=== PATIENT | female | born 1970 | race Caucasian/White ===

== ENCOUNTER 2017-03-28 23:23 | Emergency (ER) | payer OTHER ==
[2017-03-28 23:28] VITALS: BMI 22.2
[2017-03-29] MEDS ORDERED: TETANUS AND DIPHTHERIA TOXOID 0.5 ML DISP.SYRIN IM ONE (00:22)
--- NOTE | 2017-03-29 00:29 | PDOC ---
History of Present Illness - General Chief Complaint: Injury Stated Complaint: LACERATION Time Seen by Provider: 03/29/17 00:15 History Source: Patient, Accountant Used Exam Limitations: Language Barrier - History of Present Illness Initial Comments: 03/29/17 00:24 46yo female patient with no significant past medical history presents to ED c/o left ring finger injury sustained when finger was caught and slammed in a car door. Patient denies any other complaints at this time. Incident occurred around 9pm. No OTC medications use. LNMP: Mar 18. Timing/Duration: constant Severity: mild Modifying Factors: worse with: cold therapy, eating, immobilization, medication , movement, rest, other Associated Symptoms: denies: denies symptoms, chest pain, cough, diaphoresis, fever/chills, headaches, loss of appetite, malaise, nausea/vomiting, rash, seizure, shortness of breath, syncope, weakness, other Past History - Travel Traveled outside of the country in the last 30 days: No Close contact w/someone who was outside of country & ill: No - Past Medical History Allergies/Adverse Reactions: Allergies Allergy/AdvReac Type Severity Reaction Status Date / Time No Known Allergies Allergy Verified 03/28/17 23:29 Home Medications: Ambulatory Orders NK [No Known Home Medication] 03/28/17 - Suicide/Smoking/Psychosocial Hx Smoking History: Never smoked Have you smoked in the past 12 months: No Information on smoking cessation initiated: No Hx Alcohol Use: No Drug/Substance Use Hx: No Review of Systems - Review of Systems Able to Perform ROS?: Yes Is the patient limited Tristanian proficient: No Constitutional: No: Chills, Fever Musculoskeletal: Yes: Other (Left Ringer finger injury) All Other Systems: Reviewed and Negative *Physical Exam - Vital Signs Last Vital Signs Temp Pulse Resp BP Pulse Ox 98.3 F 124 H 19 149/88 99 03/28/17 23:26 03/28/17 23:26 03/28/17 23:26 03/28/17 23:26 03/28/17 23:26 - Physical Exam General Appearance: Yes: Nourished, Appropriately Dressed, Mild Distress. No: Apparent Distress, Moderate Distress, Severe Distress Respiratory/Chest: positive: Lungs Clear, Normal Breath Sounds. negative: Chest Tender, Respiratory Distress, Accessory Muscle Use, Labored Respiration, Rapid RR Cardiovascular: positive: Regular Rhythm, Regular Rate Musculoskeletal: positive: Normal Inspection. negative: CVA Tenderness, Decreased Range of Motion, Vertebral Tenderness Extremity: positive: Normal Capillary Refill, Normal Inspection, Normal Range of Motion, Other (Left PIP, DIP, MCP of ring finger ROM WNL. Small laceration noted salmeron aspect with bruising noted. +Tenderness to light touch noted.) Integumentary: positive: Normal Color, Dry, Warm Neurologic: positive: stope miner II-XII NML intact, Fully Oriented, Alert, Normal Mood/ Affect, Normal Response, Motor Strength 11/02 ED Treatment Course - RADIOLOGY Radiology Studies Ordered: Category Date Time Status HAND- LEFT [RAD] Stat Radiology 03/29/17 00:22 Ordered *DC/Admit/Observation/Transfer Diagnosis at time of Disposition: Finger injury Qualifiers: Encounter type: initial encounter Laterality: left Qualified Code(s): S69.92XA - Unspecified injury of left wrist, hand and finger(s), initial encounter - Discharge Dispostion Disposition: HOME Condition at time of disposition: Stable Admit: No - Patient Instructions Printed Discharge Instructions: DI for Hand Injury Additional Instructions: Follow up with your primary care provider. Wash hands with soap and water. Keep covered with bandage. Return if symptoms worsen or any concerns for further evaluation. Print Language: ESTONIAN - Post Discharge Activity Forms/Work/School Notes: Back to Work
[2017-03-29 02:47] VITALS: BP 137/82; PULSE 100; TEMP 98
== END 2017-03-29 02:47 | disposition home or self-care (01) ==
LOC: JER 23:23
PROC: 3E0234Z Introduction of Serum, Toxoid and Vaccine into Muscle, Percutaneous Approach (ICD-10-PCS; principal; 2017-03-28)
DX: S61.215A Laceration without foreign body of left ring finger without damage to nail, initial encounter (principal); V48.3XXA Unspecified car occupant injured in noncollision transport accident in nontraffic accident, initial encounter; Y92.488 Other paved roadways as the place of occurrence of the external cause; Y93.89 Activity, other specified; Y99.9 Unspecified external cause status
CPT/HCPCS: 73130-TC-LT; 99281-25